=== PATIENT | female | born 1970 ===

== ENCOUNTER 2024-09-29 05:39 | Day surgery (SDC) | payer OTHER ==
[2024-09-24 14:19] VITALS: BP 133/83
[~2024-09-29] VITALS: Ht 152.4 cm; Wt 62.6 kg
[2024-09-29] MEDS ORDERED: POVIDONE-IODINE 118 ML BOTT TOP ONE (07:45)
[2024-09-29] MEDS ORDERED: IBU600 MG PO (08:31)
== END 2024-09-29 14:15 | disposition home or self-care (01) ==
LOC: CIR.AMB 05:39
PROVIDERS: ATTEND Obstetrics & Gynecology Gynecology
DX: N84.0 Polyp of corpus uteri (principal); Z88.2 Allergy status to sulfonamides